=== PATIENT | female | born 1950 | race Two or more races ===

== ENCOUNTER 2022-06-13 12:39 | Emergency (ER) | payer OTHER ==
[~2022-06-13] VITALS: Ht 157.5 cm; Wt 54.4 kg
[2022-06-13] MEDS ORDERED: NORVASC5 MG PO (13:07)
[2022-06-13] MEDS ORDERED: SYNTHROID50 MCG PO (13:07)
[2022-06-13] MEDS ORDERED: TOPROL XL25 M1 PO (13:07)
[2022-06-13] MEDS ORDERED: COZAAR100 MG PO (13:07)
[2022-06-13] MEDS ORDERED: HYDROCHLOROTH12.5 MG PO (13:08)
[2022-06-13] MEDS ORDERED: PLAVIX75 MG PO (13:08)
== END 2022-06-13 16:02 | disposition home or self-care (01) ==
LOC: ER 12:39
DX: S49.92XA Unspecified injury of left shoulder and upper arm, initial encounter (principal); W18.30XA Fall on same level, unspecified, initial encounter; Y93.84 Activity, sleeping; Y92.230 Patient room in hospital as the place of occurrence of the external cause; Z88.2 Allergy status to sulfonamides; I10 Essential (primary) hypertension; E03.9 Hypothyroidism, unspecified